=== PATIENT | female | born 1985 ===

== ENCOUNTER 2018-08-16 23:41 | Emergency (ER) | payer SELFPAY ==
[2018-08-16] MEDS ORDERED: DiphenhydrAMINE 50 mg/ml Inj ONE (23:55)
[2018-08-16] MEDS ORDERED: Sodium Chloride 0.9% 1,000 ML ONE (23:55)
[2018-08-17] MEDS ORDERED: Sodium Chloride 0.9% 1,000 ML IV ONE (00:05)
[2018-08-17] MEDS ORDERED: DiphenhydrAMINE 50 mg/ml Inj IVP STA (00:05)
[2018-08-17 00:09] VITALS: O2SAT 100
--- NOTE | 2018-08-17 00:15 | C.PDOC ---
History Of Present Illness 32 year old female, with possible seafood allergy, presents to the ED for evaluation of skin redness and shortness of breath which began after she ate seafood prior to arrival. Patient denies itchiness. Chief Complaint (Nursing): Allergic Reaction History Per: Patient History/Exam Limitations: no limitations Onset/Duration Of Symptoms: Hrs Current Symptoms Are (Timing): Still Present Possible Cause: Unknown, Food Home/EMS Treatment: None Past Medical History Reviewed: Historical Data, Nursing Documentation, Vital Signs Vital Signs: Last Vital Signs Temp 97.9 F 08/16/18 23:45 Pulse 130 H 08/16/18 23:45 Resp 19 08/16/18 23:45 BP 112/68 08/16/18 23:45 Pulse Ox 100 08/16/18 23:45 - Medical History PMH: No Chronic Diseases Surgical History: No Surg Hx Family History: States: Unknown Family Hx - Social History Hx Alcohol Use: Yes Hx Substance Use: No - Immunization History Hx Tetanus Toxoid Vaccination: No Hx Influenza Vaccination: No Hx Pneumococcal Vaccination: No Review Of Systems Respiratory: Positive for: Shortness of Breath Skin: Positive for: Other (skin redness, no itchiness ) Physical Exam - Physical Exam Appears: Non-toxic, No Acute Distress Skin: Warm, Dry, Rash (urticarial rash to bilateral upper extremities and chest regions ), Other (mild facial erythema noted ) Head: Atraumatic, Normacephalic Eye(s): bilateral: Normal Inspection Oral Mucosa: Moist Tongue: Normal Appearing, No Swelling Lips: Normal Appearing, No Swelling Throat: Normal, No Erythema, No Exudate, No Drooling Neck: Supple Chest: Symmetrical, No Deformity, No Tenderness Cardiovascular: Rhythm Regular, No Murmur Respiratory: Normal Breath Sounds, No Rales, No Rhonchi, No Wheezing Extremity: Normal ROM, Capillary Refill (less than 2 seconds ) Neurological/Psych: Oriented x3, Normal Speech, Normal Cognition ED Course And Treatment O2 Sat by Pulse Oximetry: 100 (on RA) Pulse Ox Interpretation: Normal Progress Note: Benadryl IVP, Pepcid IVP, Solu-Medtrol IVP and IV Fluids given. Disposition Counseled Patient/Family Regarding: Diagnosis - Disposition Referrals: [facility] [Outside] Disposition: HOME/ ROUTINE Disposition Time: : Condition: IMPROVED Prescriptions: DiphenhydrAMINE [Benadryl] 25 mg PO Q6 #20 cap Methylprednisolone [Medrol Dose Pack (21 tabs)] 4 mg PO DAILY #21 mg Instructions: Hives Forms: [facility] (Marshallese), Gen Discharge Inst Hungarian Print Language: KOREAN - POA Present On Arrival: None - Clinical Impression Clinical Impression: Allergic reaction - Scribe Statement The provider has reviewed the documentation as recorded by the Scribe (Amy Villafana) Provider Attestation: All medical record entries made by the Scribe were at my direction and personally dictated by me. I have reviewed the chart and agree that the record accurately reflects my personal performance of the history, physical exam, medical decision making, and the department course for this patient. I have also personally directed, reviewed, and agree with the discharge instructions and disposition.
[2018-08-17 01:08] VITALS: BP 99/67; PULSE 110; RESP 18; TEMP 98.1
--- NOTE | 2018-08-17 14:41 | CARD ---
APPROVED REPORT Date of service: 08/16/2018 EKG Measurement Heart [id number] <Conclusion> Sinus tachycardia Otherwise normal ECG
== END 2018-08-17 01:42 | disposition home or self-care (01) ==
LOC: C.ER 23:41
DX: T78.40XA Allergy, unspecified, initial encounter (principal)
CPT/HCPCS: 93005; 96361; 96374; 96375; 99284; J1200; J2930; J7030